=== PATIENT | male | born 1955 | race Native Hawaiian/Other Pacific Islander ===

== ENCOUNTER 2017-03-06 04:42 | Emergency (ER) | payer OTHER ==
[2017-03-06 04:48] VITALS: RESP 18; TEMP 98; O2SAT 98
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
[2017-03-06 06:51] VITALS: BP 141/84; PULSE 83
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
== END 2017-03-06 05:50 | disposition home or self-care (01) ==
LOC: H.ER 04:42 → EDSEX 04:42 → H.ER 05:50
DX: M25.561 Pain in right knee (principal); M54.5 Low back pain; M25.511 Pain in right shoulder; V43.52XA Car driver injured in collision with other type car in traffic accident, initial encounter; Y92.410 Unspecified street and highway as the place of occurrence of the external cause